=== PATIENT | female | born 1950 | race Caucasian/White ===

== ENCOUNTER 2017-01-27 10:01 | Emergency (ER) | payer OTHER ==
[2017-01-27 10:25] VITALS: BP 133/65
--- NOTE | 2017-01-27 10:47 | UC ---
Respiratory Complaint HPI - HPI Summary HPI Summary: Got sick with ST and cough about 2 weeks ago; in the last 4 days has developed significant ear stuffiness. Was in [facility], just returned last night.. Is feeling better but dry cough, especially at night, has continued. Trouble sleeping. Denies fever, facial pain, or tightness in the chest. No hx of asthma or COPD. 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 - History of Current Complaint Chief Complaint: UCGeneralIllness Stated Complaint: COUGH Time Seen by Provider: 01/27/17 10:27 Hx Obtained From: Patient ?: No Onset/Duration: Gradual Onset, Lasting Weeks Timing: Constant Severity Initially: Moderate Severity Currently: Mild Character: Cough: Nonproductive Aggravating Factors: Deep Breaths, Recumbent Position Alleviating Factors: Upright Position Associated Signs And Symptoms: Negative: Fever, Chills, Dizziness, Calf Pain, Calf Swelling, Nasal Congestion, Sinus Discomfort - Allergies/Home Medications Allergies/Adverse Reactions: Allergies Allergy/AdvReac Type Severity Reaction Status Date / Time No Known Allergies Allergy Verified 01/27/17 10:07 Home Medications: Home Medications Aspirin [Aspirin 81 MG TAB] 81 mg PO 01/27/17 [History] Cholecalciferol [Vitamin D3] 1,000 unit PO 01/27/17 [History] Cyanocobalamin TAB* [Vitamin B12 TAB*] 500 mcg PO DAILY 01/27/17 [History Confirmed 01/27/17] Hydrochlorothiazide TAB* [Hydrodiuril TAB*] 25 mg PO DAILY 01/27/17 [History Confirmed 01/27/17] Levofloxacin Eye Drops 1 drop TID 01/27/17 [History] Buckeye-3 Fatty Acids [Fish Oil] 500 mg PO 01/27/17 [History Confirmed 01/27/17] PMH/Surg Hx/FS Hx/Imm Hx Previously Healthy: Yes Cancer History Of: Denies: Breast Cancer - Surgical History Surgical History: Yes Surgery Procedure, Year, and Place: L hip replacement 2013 - Family History Known Family History: Positive: Hypertension - Social History Occupation: Employed Full-time Alcohol Use: Occasionally Substance Use Type: None Smoking Status (MU): Never Smoked Tobacco - Immunization History Most Recent Influenza Vaccination: 2015 Review of Systems Constitutional: Negative Skin: Negative Eyes: Negative ENT: Sore Throat Respiratory: Cough Cardiovascular: Negative Gastrointestinal: Negative Genitourinary: Negative Motor: Negative Neurovascular: Negative Musculoskeletal: Negative Neurological: Negative Psychological: Negative All Other Systems Reviewed And Are Negative: Yes Physical Exam Triage Information Reviewed: Yes Appearance: Well-Appearing, No Pain Distress, Well-Nourished Vital Signs: Initial Vital Signs Temp 99.5 F 01/27/17 10:09 Pulse 77 01/27/17 10:09 Resp 18 01/27/17 10:09 BP 133/65 01/27/17 10:09 Pulse Ox 100 01/27/17 10:09 Vital Signs Reviewed: Yes Eye Exam: Normal Eyes: Positive: Conjunctiva Clear ENT Exam: Normal ENT: Positive: Normal ENT inspection, Hearing grossly normal, Pharynx normal, TMs normal. Negative: Pharyngeal erythema, TM bulging, TM dull, TM red, Tonsillar swelling, Tonsillar exudate Dental Exam: Normal Neck exam: Normal Neck: Positive: Supple, Nontender, No Lymphadenopathy Respiratory Exam: Other - freq nonprod cough Respiratory: Positive: Chest non-tender, Lungs clear, Normal breath sounds, No respiratory distress, No accessory muscle use Cardiovascular Exam: Normal Cardiovascular: Positive: RRR, No Murmur Musculoskeletal Exam: Normal Neurological Exam: Normal Neurological: Positive: Alert Psychological Exam: Normal Skin Exam: Normal UC Diagnostic Evaluation - Laboratory O2 Sat by Pulse Oximetry: 100 Respiratory Course/Dx - Differential Dx/Diagnosis Provider Diagnoses: Post-viral cough Discharge - Discharge Plan Condition: Stable Disposition: HOME Prescriptions: Benzonatate CAP* [Tessalon 100 MG CAP*] 100 mg PO TID PRN #30 cap PRN Reason: Cough Guaifenesin-Codeine [Guaiatussin AC 100-10 mg/5Ml] 5 - 10 ml PO BEDTIME #120 ml MDD 10mL predniSONE TAB* [Deltasone TAB*] 50 mg PO DAILY #4 tab Patient Education Materials: Acute Cough (ED), Serous Otitis Media (ED) Referrals: Sophie Hough NP [Primary Care Provider] - Additional Instructions: POST-VIRAL COUGH: A very common cause of persistent cough is called "post-viral cough syndrome." During a viral infection, the virus can irritate your bronchial tubes. Then even after the infection is over, you may continue to cough. Your cough is left over from your recent viral infection. You do not show evidence of a continuing viral infection, bronchitis or pneumonia. You do not need antibiotics at this time. It may be helpful to use inhaled cool mist, throat lozenges, cough medication or bronchial inhalers to open up your bronchial tubes. We expect you will be improved in a week or two. Please get back to us if you have fever, chest pain, colored sputum, blood in the sputum, wheezing or shortness of breath.
== END 2017-01-27 10:50 | disposition home or self-care (01) ==
LOC: UCEAST 10:01
DX: R05 Cough (principal); Z79.82 Long term (current) use of aspirin; Z96.642 Presence of left artificial hip joint
CPT/HCPCS: 99212; G0463

== ENCOUNTER 2020-04-26 05:45 | Observation (INO) ==
[2020-04-26] MEDS ORDERED: Acetaminophen IV 1 GM/100ML 1,000 MG/100 ML VIAL IVPB ONE (06:00)
[2020-04-26] MEDS ORDERED: Lactated Ringers 1000 ml BAG 1,000 ML IV SCH (06:00)
[2020-04-26] MEDS ORDERED: Buffered Lidocaine 1% SYRIN 1 ml INTRADERM ONE ×2 (06:00→06:52)
[2020-04-26] MEDS ORDERED: Famotidine IV 10 MG/ML 2 ml VIAL (20 mg) IV ONE (06:00)
[2020-04-26] MEDS ORDERED: ceFAZolin 2 GM PREMIX 2 GM/50 ML BAG ONE (06:52)
[2020-04-26] MEDS ORDERED: Acetaminophen IV 1 GM/100ML 100 ML ONE (06:52)
[2020-04-26] MEDS ORDERED: Famotidine IV 10 MG/ML 2 ml VIAL (20 mg) ONE (06:52)
[2020-04-26] MEDS ORDERED: Midazolam 2 mg/2 ml VIAL 1 mg/ml 2 ml VIAL (2 mg) ONE (07:08)
[2020-04-26] MEDS ORDERED: Propofol 0 MG/0 ML BTL ONE (07:09)
[2020-04-26] MEDS ORDERED: Lidocaine 2% PF 5 ML VIAL ONE (07:11)
[2020-04-26] MEDS ORDERED: Phenylephrine IV 10 MG/ML 1 ml VIAL ONE (07:13)
[2020-04-26] MEDS ORDERED: Bupivacaine 0.5% SDV PF 30ML VIAL ONE ×2 (07:20→07:43)
[2020-04-26] MEDS ORDERED: Bupivacaine-MPF SPINAL 7.5 MG/ML - 2ML AMP ONE (07:25)
[2020-04-26] MEDS ORDERED: Bupivacaine 0.25% w/EPI 10 ML SDV ONE (07:48)
[2020-04-26] MEDS ORDERED: Ondansetron 4 mg VIAL 2 MG/ML 2 ml VIAL ONE (09:07)
[2020-04-26] MEDS ORDERED: Dexamethasone IV 4 MG/ML VIAL 1 ml VIAL ONE (09:07)
[2020-04-26] MEDS ORDERED: Vancomycin 1,000 MG VIAL ONE (09:47)
[2020-04-26] MEDS ORDERED: fentaNYL 100 mcg/2 ml 50 MCG/ML VIAL ONE ×2 (09:58→10:51)
[2020-04-26] MEDS ORDERED: diPHENhydraMINE IV 50 MG/ML 1 ml VIAL (BENADRYL) IV PRN (10:40)
[2020-04-26] MEDS ORDERED: Magnesium Hydroxide LIQ 30 ML UDC PO PRN (10:40)
[2020-04-26] MEDS ORDERED: Morphine 2 MG/ML SYRINGE IV PRN (10:40)
[2020-04-26] MEDS ORDERED: Ondansetron 4 mg VIAL 2 MG/ML 2 ml VIAL IV PRN (10:40)
[2020-04-26] MEDS ORDERED: Lactulose 30 ml UDC PO PRN (10:40)
[2020-04-26] MEDS ORDERED: diPHENhydraMINE 25 mg TAB PO PRN (10:40)
[2020-04-26] MEDS ORDERED: Ondansetron ODT 4 mg TAB 4 MG TAB PO PRN (10:40)
[2020-04-26] MEDS ORDERED: fentaNYL 100 mcg/2 ml 50 MCG/ML VIAL IV PRN (10:43)
[2020-04-26] MEDS ORDERED: Naloxone 0.4 mg VIAL 0.4 mg/ml 1 ml VIAL IV PRN ×2 (10:43)
[2020-04-26] MEDS: D5W 1/2 NS 1000 ml BAG 1,000 ML IV SCH ×2 (11:51→22:36)
[2020-04-26] MEDS: ceFAZolin 1 GM ADVAN 1 GM in NS 0.9% 50 ML 50 ML IVPB SCH (16:16)
[2020-04-26] MEDS: Magnesium Hydroxide LIQ 30 ML UDC PO SCH (20:50)
[2020-04-27] MEDS: ceFAZolin 1 GM ADVAN 1 GM in NS 0.9% 50 ML 50 ML IVPB SCH ×2 (00:25→07:28)
[2020-04-27 05:43] LABS: Hematocrit 35 % (35-47); Hemoglobin 11.8 g/dL (12.0-16.0); Mean Platelet Volume 9.4 fL (7.4-10.4); Platelet Count 212 10^3/uL (150-450)
[2020-04-27 05:58] LABS: BUN/Creatinine Ratio 31.6 (8-20); Calcium 7.8 mg/dL (8.6-10.3); EGFR African American 127.6 (>60); EGFR Non-African American 105.5 (>60); Potassium 3.3 mmol/L (3.5-5.0)
[2020-04-27] MEDS: Magnesium Hydroxide LIQ 30 ML UDC PO SCH (08:15)
[2020-04-27] MEDS ORDERED: Potassium Chlor 20 meq TAB.ER PO SCH (09:00)
[2020-04-27] MEDS ORDERED: Aspirin EC 81 mg TAB.EC (enteric coated) PO SCH (09:00)
[2020-04-27] MEDS ORDERED: Vitamin THERAPEUTIC TAB PO SCH (09:00)
[2020-04-27 11:09] VITALS: BP 118/56
[2020-04-29] MEDS ORDERED: Scopolamine PATCH Remove NOTE PATCH OFF ONE (06:00)
== END 2020-04-27 14:00 | disposition home or self-care (01) ==
LOC: OR 05:45 → SSU 05:45
PROVIDERS: ADMIT Physician Assistant; ATTEND Orthopaedic Surgery